=== PATIENT | male | born 1980 ===

== ENCOUNTER 2023-05-12 08:00 | Outpatient (CLI) | payer OTHER ==
--- NOTE | 2023-05-12 13:38 | XRAY Report ---
PROCEDURE: Knee 3 View RT INDICATIONS: RIGHT KNEE SPRAIN TECHNIQUE: 3 views of the knee(s) were acquired. COMPARISON: None. FINDINGS: Bones: No fractures or dislocations. No suspicious bony lesions. Soft tissues: Small knee joint effusion. No suspicious soft tissue calcifications or masses. IMPRESSION: Right knee without acute fracture or dislocation. Small joint effusion. If there is continued clinical concern for pathology or occult fracture, consider follow-up imaging w ith repeat radiographs in 10-14 days and possible advanced imaging (CT, MRI, bone scan) if symptoms p ersist. Reviewed by: Adriano Fox MD on 05/12/2023 1:36 PM PST Approved by: Adriano Fox MD on 05/12/2023 1:36 PM PST Station ID: [id number]
== END 2023-05-12 23:59 | disposition home or self-care (01) ==
LOC: DI.S 08:00
PROVIDERS: ATTEND Physician Assistant Medical
DX: S83.8X1A Sprain of other specified parts of right knee, initial encounter (principal); M25.461 Effusion, right knee